=== PATIENT | female | born 1995 | race Two or more races ===

== ENCOUNTER 2023-11-21 16:30 | Emergency (ER) | payer MEDICAID, OTHER ==
[~2023-11-21] VITALS: Ht 157.5 cm; Wt 126.9 kg
[2023-11-21 18:45] VITALS: BP 108/72; PULSE 75; RESP 16; TEMP 97.8; O2SAT 99
[2023-11-21] MEDS ORDERED: IBUP1TAB4 PO (18:49)
[2023-11-21] MEDS: KETOROLAC TROMETH 30 MG/ML 1ML VIAL IM ONE (18:49)
== END 2023-11-21 18:55 | disposition home or self-care (01) ==
LOC: ER 16:34
DX: S50.11XA Contusion of right forearm, initial encounter (principal); M25.572 Pain in left ankle and joints of left foot; W18.09XA Striking against other object with subsequent fall, initial encounter; Y93.89 Activity, other specified; Y92.512 Supermarket, store or market as the place of occurrence of the external cause; Y99.8 Other external cause status
CPT/HCPCS: 96372; 99283; J1885

== ENCOUNTER 2024-01-14 18:46 | Emergency (ER) | payer MEDICAID ==
[~2024-01-14] VITALS: Ht 157.5 cm; Wt 59.1 kg
[~2024-01-14 18:46] MED LIST: IBUP1TAB4 PO
[2024-01-14 19:41] LABS: Basophils # (auto) 0 10 ^3/uL (0-0.2); Basophils % (auto) 0.2 % (0.0-2.0); Eosinophils # (auto) 0 10 ^3/uL (0-0.8); Eosinophils % (auto) 0.4 % (0.0-7.0); Hematocrit 46.4 % (36.0-46.0); Lymphocytes # (auto) 1.4 10 ^3/uL (0.4-5.4); Lymphocytes % (auto) 16.6 % (10.0-50.0); Mean Corpuscular Hemoglobin 30.4 pg (28.0-32.0); Mean Corpuscular Hgb Conc. 34.5 g/dL (32.0-36.0); Mean Corpuscular Volume 88.1 fL (80.0-100.0); Monocytes # (auto) 0.6 10 ^3/uL (0-1.3); Monocytes % (auto) 6.9 % (0.0-12.0); Neutrophils # (auto) 6.6 10 ^3/uL (1.6-8.6); Neutrophils % (auto) 75.9 % (37.0-80.0); Platelet Count (auto) 286 10^3/uL (140-450); Red Blood Cells 5.27 10^6/uL (4.0-5.20); Red Cell Distribution Width 12.6 % (11.8-14.3); White Blood Cell 8.7 10^3/uL (4.4-10.8)
[2024-01-14 19:55] LABS: Alkaline Phosphatase 74 U/L (46-116); Anion Gap 9 (5-15); Aspartate Aminotransferase < 8 U/L (13-40); BUN/Creatinine Ratio 12.6 (10.0-20.0); Blood Urea Nitrogen 11 mg/dL (9-23); Calcium 9.9 mg/dL (8.7-10.4); Carbon Dioxide 22 mmol/L (20-30); Chloride 106 mmol/L (98-107); Glucose 111 mg/dL (74-106); Lipase 45 U/L (12-53); Potassium 3.4 mmol/L (3.5-5.1); Sodium 137 mmol/L (136-145)
[2024-01-14 19:56] LABS: Bilirubin, Total 0.4 mg/dL (0.2-1.0); Total Protein 8.2 g/dL (5.7-8.2)
[2024-01-14] MEDS: SODIUM CHLORIDE 0.9% 2,000 ML IV ONE (19:59)
[2024-01-14] MEDS: ONDANSETRON HCL 4 MG/2 ML VIAL IV ONE (19:59)
[2024-01-14 20:09] LABS: Alanine Aminotransferase < 9 U/L (7-40)
[2024-01-14] MEDS: MORPHINE SULFATE 4 MG/ML SYR/VIAL IV ONE (21:46)
[2024-01-15 01:30] LABS: COVID19 ANTIGEN SOFIA FIA POSITIVE (NEGATIVE)
[2024-01-15 01:33] LABS: Urine Bacteria FEW /hpf (None Seen); Urine Blood Negative /uL (Negative); Urine Clarity Clear (Clear); Urine Color Light-Yellow (Yellow); Urine Mucus FEW (None Seen); Urine Protein, UAD TRACE (Negative); Urine Specific Gravity 1.018 (1.001-1.035); Urine Urobilinogen Normal (Negative); Urine WBC 3 /hpf (0 - 5)
[2024-01-15] MEDS: POTASSIUM EFFERVESENT TAB 25 MEQ PO ONE (01:45)
[2024-01-15] MEDS: KETOROLAC TROMETH 30 MG/ML 1ML VIAL IM ONE (02:17)
[2024-01-15 02:20] VITALS: TEMP 98; O2SAT 98
[2024-01-15] MEDS ORDERED: ACET-1304 PO (03:25)
[2024-01-15] MEDS ORDERED: LOPE7.5C PO (03:25)
[2024-01-15] MEDS ORDERED: ZOFR4T PO (03:25)
[2024-01-15] MEDS ORDERED: IBUP1TAB5 PO (03:25)
[2024-01-15] MEDS: MORPHINE SULFATE 4 MG/ML SYR/VIAL IV ONE (03:51)
[2024-01-15 04:20] VITALS: BP 98/60; PULSE 68; RESP 20
== END 2024-01-15 04:22 | disposition home or self-care (01) ==
LOC: ER 18:46
DX: U07.1 COVID-19 (principal); R10.2 Pelvic and perineal pain; R10.13 Epigastric pain; R11.2 Nausea with vomiting, unspecified; R19.7 Diarrhea, unspecified
CPT/HCPCS: 36415; 74176; 80053; 81001; 83605; 83690; 84484; 84702; 85025; 85379; 87426; 96361; 96372; 96374; 99285; J1885; J2270; J2405; J7030

== ENCOUNTER → 2024-08-15 | Outpatient (CLI) | payer MEDICAID ==
[~2024-08-15] MED LIST changes: +ACET-1304 PO; +IBUP1TAB5 PO; +LOPE7.5C PO; +ZOFR4T PO
[2024-08-15 09:54] LABS: Basophils # (auto) 0 10 ^3/uL (0-0.2); Basophils % (auto) 0.8 % (0.0-2.0); Eosinophils # (auto) 0.2 10 ^3/uL (0-0.8); Eosinophils % (auto) 5.2 % (0.0-7.0); Hematocrit 49.2 % (36.0-46.0); Hemoglobin 16.5 g/dL (12.2-16.2); Lymphocytes # (auto) 1.3 10 ^3/uL (0.4-5.4); Lymphocytes % (auto) 33.2 % (10.0-50.0); Mean Corpuscular Hemoglobin 29.8 pg (28.0-32.0); Mean Corpuscular Hgb Conc. 33.6 g/dL (32.0-36.0); Mean Corpuscular Volume 88.7 fL (80.0-100.0); Monocytes # (auto) 0.5 10 ^3/uL (0-1.3); Monocytes % (auto) 11.9 % (0.0-12.0); Neutrophils % (auto) 48.9 % (37.0-80.0); Nucleated Red Blood Cells % 0.2 %; Platelet Count (auto) 260 10^3/uL (140-450); Red Blood Cells 5.54 10^6/uL (4.0-5.20); Red Cell Distribution Width 12.9 % (11.8-14.3); Urine Blood Negative /uL (Negative); Urine Clarity Turbid (Clear); Urine Color Light-Yellow (Yellow); Urine Protein, UAD Negative (Negative); Urine Specific Gravity 1.023 (1.001-1.035); Urine Urobilinogen Normal (Negative)
[2024-08-15 10:23] LABS: Alanine Aminotransferase 17 U/L (7-40); Alkaline Phosphatase 64 U/L (46-116); Anion Gap 9 (5-15); Blood Urea Nitrogen 12 mg/dL (9-23); Carbon Dioxide 26 mmol/L (20-31); Chloride 104 mmol/L (98-107); Glucose 96 mg/dL (74-106); LDL Cholesterol 89 mg/dL (< 100); Potassium 4.1 mmol/L (3.5-5.1); Sodium 139 mmol/L (136-145); Triglycerides 41 mg/dL (< 150)
[2024-08-15 10:24] LABS: Bilirubin, Total 0.7 mg/dL (0.2-1.0); Cholesterol 157 mg/dL (< 200)
[2024-08-15 10:28] LABS: Albumin 5.2 g/dL (3.2-4.8); Aspartate Aminotransferase 11 U/L (13-40); Calcium 10.6 mg/dL (8.7-10.4); HDL Cholesterol 62 mg/dL (40-59); Total Protein 8.2 g/dL (5.7-8.2)
[2024-08-15 11:03] LABS: Hepatitis B Core Total AB Negative (Negative)
[2024-08-15 11:46] LABS: Hepatitis A Total Antibody Positive (Negative); Hepatitis B Surface Antibody Negative (Negative); Hepatitis B Surface Antigen Negative (Negative); Hepatitis C Antibody Negative (Negative)
[2024-08-16 12:07] LABS: Chlamydia Trachomatis, NAA Negative (Negative); Neisseria gonorrhoeae, NAA Negative (Negative)
== END | disposition home or self-care (01) ==
LOC: LAB 09:21
PROVIDERS: ATTEND Licensed Practical Nurse
DX: Z13.1 Encounter for screening for diabetes mellitus (principal); E55.9 Vitamin D deficiency, unspecified; Z00.00 Encounter for general adult medical examination without abnormal findings; Z79.899 Other long term (current) drug therapy
CPT/HCPCS: 36415; 80053; 80061; 81003; 82306; 82607; 83036; 84443; 85025; 86704; 86706; 86708; 86780; 86803; 87340

== ENCOUNTER 2025-03-22 06:10 | Day surgery (SDC) | payer MEDICAID ==
[2025-03-19 10:56] LABS: Hematocrit 46.3 % (36.0-46.0); Hemoglobin 15.8 g/dL (12.2-16.2); Mean Corpuscular Hemoglobin 30.1 pg (28.0-32.0); Mean Corpuscular Volume 88.2 fL (80.0-100.0); Nucleated Red Blood Cells % 0.4 %
[2025-03-19 11:08] LABS: INR 1.0 (0.9-1.15); Partial Thromboplastin Time 28.0 SEC (24.5-34.5); Prothrombin Time 10.6 sec (9.3-11.8)
[2025-03-19 11:09] LABS: Urine Budding Yeast MODERATE /hpf (None Seen); Urine Protein, UAD 1+ (Negative); Urine WBC Clumps PRESENT /hpf (None Seen)
[2025-03-19 11:16] LABS: Albumin 4.7 g/dL (3.2-4.8); Alkaline Phosphatase 60 U/L (46-116); Anion Gap 9 (5-15); BUN/Creatinine Ratio 16.9 (10.0-20.0); Blood Urea Nitrogen 12 mg/dL (9-23); Calcium 9.8 mg/dL (8.7-10.4); Carbon Dioxide 28 mmol/L (20-31); Chloride 105 mmol/L (98-107); Glucose 84 mg/dL (74-106); Potassium 3.9 mmol/L (3.5-5.1); Sodium 142 mmol/L (136-145); Total Protein 7.8 g/dL (5.7-8.2)
[2025-03-19 11:17] LABS: Bilirubin, Total 0.7 mg/dL (0.2-1.0)
[2025-03-19 11:19] LABS: Alanine Aminotransferase < 9 U/L (7-40)
--- NOTE | 2025-03-19 23:18 | DVHHP ---
ADMIT DATE: 03/22/2025 PREADMIT HISTORY AND PHYSICAL CHIEF COMPLAINT: Desires bilateral tubal ligation. HISTORY OF PRESENT ILLNESS: The patient is a 29-year-old 3 para 3, being admitted for laparoscopic placement of Filshie clips. The patient does not want any other form of contraception. Risks, complications and indication were discussed with the patient. Alternatives were discussed with the patient. Failure rate was discussed with the patient. PAST MEDICAL HISTORY: None. PAST SURGICAL HISTORY: None. SOCIAL HISTORY: None. FAMILY HISTORY: None. OBSTETRIC AND GYNECOLOGIC HISTORY: Three normal vaginal deliveries. ALLERGIES: No known drug allergies. REVIEW OF SYSTEMS: Consistent with HPI. PHYSICAL EXAMINATION: VITAL SIGNS: Stable, afebrile. HEENT: Within normal limits. CARDIOVASCULAR: Regular rate and rhythm. LUNGS: Clear to auscultation. BREASTS: Symmetrical. No masses. ABDOMEN: Soft, nontender. PELVIC: External genitalia within normal limits. Vagina normal. Cervix grossly normal appearing. Uterus 7-week size. Adnexa nonpalpable. EXTREMITIES: No clubbing, cyanosis or edema. IMPRESSION: Multiparity, desires tubal sterilization. PLAN: Laparoscopic placement of Filshie clips. Informed consent obtained. Risks and complications of surgery including infection, bleeding, hematoma formation, injury to bowel or bladder, surrounding organ, possibility of DVT, pulmonary embolism, and risks of anesthesia were discussed with the patient. Failure rate of this procedure was discussed with the patient. Options were reviewed. All questions were answered. The patient fully understands. She wishes to proceed with the planned procedure. DO JUAN Medeiros TID: [id number] RECEIPT: [id number]
[~2025-03-22] VITALS: Ht 157.5 cm; Wt 56.7 kg
[~2025-03-22 06:10] MED LIST changes: -ACET-1304 PO; +ASCO500T11 PO; -IBUP1TAB4 PO; -IBUP1TAB5 PO; -LOPE7.5C PO; -ZOFR4T PO
[2025-03-22] MEDS ORDERED: IBUP-1456 PO (06:47)
[2025-03-22] MEDS ORDERED: ZOFR4T PO (06:47)
[2025-03-22] MEDS ORDERED: HYDR-4072 PO (06:47)
[2025-03-22] MEDS ORDERED: HYDROmorphone HCL 2 MG/ML VL/or syr IV PRN (07:45)
[2025-03-22] MEDS ORDERED: MORPHINE SULFATE 4 MG/ML SYR/VIAL IV PRN (07:45)
[2025-03-22 07:50] VITALS: PULSE 73; RESP 16; O2SAT 100
--- NOTE | 2025-03-22 07:50 | DVHOP2 ---
Operative Report DATE OF OPERATION: 03/22/25 PREOPERATIVE DIAGNOSES: 1. Desires elective tubal sterilization. POSTOPERATIVE DIAGNOSES: 1. Desires elective tubal sterilization SURGEON: Donnie King D.O. ANESTHESIOLOGIST: abelardo TYPE OF ANESTHESIA : General. CONSENT: The patient was informed of the risks and benefits of the procedure. The patient was informed of the risks and benefits of the procedure. These include but are not limited to , complications of anesthesia, postoperative infection, incomplete relief of symptoms, recurrence of symptoms, damage to blood vessels, nerves and tendons, deep venous thrombosis, pulmonary embolism and possible need for repeat surgery in the future. FINDINGS: Cervix is grossly normal appearing. Uterus is 10 weeks' size. Adnexa nonpalpable. COMPLICATIONS: None. BLOOD PRODUCTS USED: None. PROCEDURES: Laparoscopic placement of Filschi Clips to bilateral tubes PROCEDURE IN DETAIL: The patient was taken to the operating room where she was placed under general anesthesia. The patient was then prepped and draped in the usual sterile manner in the dorsal lithotomy position. The bladder was emptied using a straight catheter. Examination under anesthesia revealed the above findings. A weighted speculum was placed in the vagina. The anterior lip of the cervix was grasped using single-tooth tenaculum. Cervix was dilated. Uterus sounded to 10 cm. HUMI catheter was placed. Attention was then turned to the abdomen where a Veress needle was introduced. Abdomen was distended with 3L of CO2 gas. Using Visiport, abdomen was entered under direct visualization. Survey of abdominal cavity revealed normal finding. A 8 mm trocar was placed into the suprapubic region. Filshie clip was then loaded on the right tube as well as the left. No bleeding was noted. All the instruments were removed from the abdomen and pelvis. CO2 gas released. Incisional ports were closed using #4-0 Vicryl and sorin for the larger port. The patient tolerated the procedure well. All instruments were removed from the patient's cervix. The patient was taken to the recovery room in a stable condition. ESTIMATED BLOOD LOSS: 20 mL Visit Coding OBGYN Date of Service: Mar 22, 2025 Billing Provider: DONNIE KING DO GLOST KILN PLACER Common Visit Codes: 62748-[id number] INP/OBS CARE (HIGH) GLOST KILN PLACER Procedure Codes: 72548-YYO.SURG:ON OVIDUCT/OVARY DONNIE KING DO Mar 22, 2025 07:50
--- NOTE | 2025-03-22 07:51 | POSTOP ---
Post-Operative Note Post-Operative Note Preop Diagnosis desires tubal ligation Postop Diagnosis: s/p tubal ligation Operation performed laparoscopic placement of filschie clips Specimen na Anesthesia: General Anesthesiologist: abelardo Blood Loss(fluid mgmt) 20ml Surgeon Madelaine King Travel Specialist gumaro Coyne filsclie Complications & Mgmt none Date 03/22/25 Time 07:50 Visit Coding OBGYN Date of Service: Mar 22, 2025 Billing Provider: MADELAINE KING DO SENIOR PROJECT LEADER/TEAM LEAD Common Visit Codes: 78115-[id number] INP/OBS CARE (HIGH) SENIOR PROJECT LEADER/TEAM LEAD Procedure Codes: 42851-FUE.SURG:ON OVIDUCT/OVARY MADELAINE KING DO Mar 22, 2025 07:51
--- NOTE | 2025-03-22 07:53 | DVHDS2 ---
Physician Discharge Progress N Final Diagnosis: s/p tubal ligation Operations or Procedures: Operations or Procedures laparoscopic placement of filschie clips Condition on Discharge: Good Disposition: Home Discharge Instructions: Diet: Regular Activity: Light activity Follow Up/Referral: 1w as sched Medications: alysha siuco Follow Up Care: Specialist: 1w Discharge Statement: "Patient was advised to return to the ER or call 911 if any headaches, dizziness, shortness of breath, chest pain, abdominal pain, bleeding, fevers, or worsening of medical condition. Patient was counseled about treatment plan, medications, possible side effects, patientverbalized understanding. All questions were answered to the best of my ability. This discharge took greater then 30 minutes in planning, reviewing documentation, counseling the patient, and discussing with other team members." Visit Coding OBGYN Date of Service: Mar 22, 2025 Billing Provider: DONNIE MARTINEZ DO POLYMERIZATION OVEN OPERATOR Common Visit Codes: 89886-[id number] INP/OBS CARE (HIGH), 18825-RWN/OBS DI BELINDA DAY >30MIN POLYMERIZATION OVEN OPERATOR Procedure Codes: 74853-JDP.SURG:ON OVIDUCT/OVARY DONNIE MARTINEZ DO Mar 22, 2025 07:53
[2025-03-22] MEDS: HYDROmorphone HCL 2 MG/ML VL/or syr IV PRN (08:00)
[2025-03-22] MEDS: KETOROLAC TROMETH 30 MG/ML 1ML VIAL IV ONE (08:09)
[2025-03-22] MEDS: ACETAMINOPHEN IV 1000 MG/100ML (10MG/ML) IV STA (08:25)
[2025-03-22] MEDS: LACTATED RINGER'S 1,000 ML IV SCH (08:44)
[2025-03-22] MEDS ORDERED: MORPHINE SULFATE INJ 2 MG/ml SYRG IV PRN (08:45)
[2025-03-22] MEDS: MORPHINE SULFATE INJ 2 MG/ml SYRG IV PRN (08:49)
[2025-03-22 09:19] LABS: Hematocrit 43.3 % (36.0-46.0); Hemoglobin 15.0 g/dL (12.2-16.2); Mean Corpuscular Hemoglobin 30.4 pg (28.0-32.0); Mean Corpuscular Volume 87.5 fL (80.0-100.0); Nucleated Red Blood Cells % 0.1 %
[2025-03-22] MEDS ORDERED: ONDANSETRON HCL 4 MG/2 ML VIAL ONE (10:49)
[2025-03-22] MEDS: ONDANSETRON HCL 4 MG/2 ML VIAL IV PRN (10:50)
[2025-03-22 11:20] VITALS: BP 120/70; PULSE 79; RESP 16; O2SAT 97
[2025-03-22] MEDS: METOCLOPRAMIDE HCL 5MG/ml INJ 2ml VIAL IV PRN (11:29)
== END 2025-03-22 11:50 | disposition home or self-care (01) ==
LOC: SUR 06:10
PROVIDERS: ATTEND Obstetrics & Gynecology
DX: Z30.2 Encounter for sterilization (principal); Z79.899 Other long term (current) drug therapy; Z98.890 Other specified postprocedural states
CPT/HCPCS: 36415; 58671; 80053; 81001; 81025; 82962; 84702; 85025; 85610; 85730; 86850; 86900; 86901; A4264; J2405